=== PATIENT | male | born 1960 | race Caucasian/White ===

== ENCOUNTER → 2024-09-19 | Outpatient (CLI) | payer OTHER | LOC: CPPFTMAIN 09:18 | PROVIDERS: ATTEND Family Medicine | DX: R06.02 Shortness of breath (principal); Z87.891 Personal history of nicotine dependence | CPT/HCPCS: 94060; 94726; 94729 ==

== ENCOUNTER 2024-10-10 18:34 | Emergency (ER) | payer OTHER ==
[2024-10-10 18:40] VITALS: RESP 18
--- NOTE | 2024-10-10 18:56 | ED ---
General Adult HPI - General Chief complaint: Recheck/Abnormal Lab/Rx Stated complaint: high hemoglobin Time Seen by Provider: 10/10/24 18:46 Source: patient, RN notes reviewed Mode of arrival: ambulatory Limitations: no limitations - History of Present Illness Initial comments: Patient is a 64-year-old male presenting to the emergency department with co ncerns for high hemoglobin level. Patient states he feels fine he has no complaints. Patient states he had a lab draw done as he does every 6 months through primary care physician and he was advised to come the emergency department for high hemoglobin level. No chest pain. No dyspnea. No fatigue. - Related Data Home Medications Medication Instructions Recorded Confirmed hydroCHLOROthiazide [Hydrodiuril] 12.5 mg PO HS 10/17/15 11/22/15 lisinopriL [Zestril] 10 mg PO HS 10/17/15 11/22/15 Insulin NPH Human Isophane 20 unit SQ AC-SUPPER 11/16/15 11/22/15 [NovoLIN N] Insulin Regular, Human [NovoLIN R] 9 units SQ AC-TID 11/16/15 11/22/15 metFORMIN HCL [Glucophage] 1,000 mg PO BID 11/16/15 11/22/15 Previous Rx's Medication Instructions Recorded Ertapenem [INVanz] 1 gm IVPB Q24H #42 bag 10/11/15 Allergies Allergy/AdvReac Type Severity Reaction Status Date / Time No Known Allergies Allergy Verified 11/22/15 14:42 Review of Systems ROS Statement: Those systems with pertinent positive or pertinent negative responses have been documented in the HPI. ROS Other: All systems not noted in ROS Statement are negative. Constitutional: Denies: fever Eyes: Denies: eye pain ENT: Denies: ear pain Respiratory: Denies: cough, dyspnea Cardiovascular: Denies: chest pain Endocrine: Denies: fatigue Gastrointestinal: Denies: abdominal pain Musculoskeletal: Denies: back pain Neurological: Denies: headache, weakness Past Medical History Past Medical History: Diabetes Mellitus, Hypertension Additional Past Medical History / Comment(s): Gout, cellulitis History of Any Multi-Drug Resistant Organisms: None Reported Past Surgical History: Orthopedic Surgery Additional Past Surgical History / Comment(s): left hip, Lasik Past Anesthesia/Blood Transfusion Reactions: No Reported Reaction Past Psychological History: No Psychological Hx Reported Smoking Status: Never smoker Past Alcohol Use History: None Reported Past Drug Use History: None Reported - Past Family History Father Family Medical History: Cancer General Exam Limitations: no limitations General appearance: alert, in no apparent distress Head exam: Present: normocephalic Eye exam: Present: normal appearance Neck exam: Present: normal inspection Respiratory exam: Present: normal lung sounds bilaterally Cardiovascular Exam: Present: regular rate, normal rhythm, normal heart sounds GI/Abdominal exam: Present: soft. Absent: distended, tenderness Extremities exam: Present: normal inspection. Absent: pedal edema, calf tenderness Neurological exam: Present: alert Psychiatric exam: Present: normal affect, normal mood Skin exam: Present: normal color Course Vital Signs 10/10/24 18:36 Temperature 98.2 F Pulse Rate 100 Respiratory 18 Rate Blood Pressure 150/96 O2 Sat by Pulse 96 Oximetry Medical Decision Making - Medical Decision Making MDM back was pt. sent in by a medical professional or institution (, PA, BUILDING CLEANING SUPERVISOR, urgent care, hospital, or skilled nursing...) When possible be specific @ -Patient was sent in by primary care physician office Did you speak to anyone other than the patient for history (EMS, parent, family, police, friend...)? What history was obtained from this source @ -No Did you review nursing and triage notes (agree or disagree)? Why? @ -I reviewed and agree with nursing and triage notes Were old charts reviewed (outside hosp., previous admission, EMS record, old EKG, old radiological studies, urgent care reports/EKG's, skilled nursing records)? Report findings @ -Previous hemoglobin levels reviewed over the past several draws that have been somewhat similar however a little bit lower Differential Diagnosis (chest pain, altered mental status, abdominal pain women, abdominal pain men, vaginal bleeding, weakness, fever, dyspnea, syncope, headache, dizziness, GI bleed, back pain, seizure, CVA, palpatations, mental health, musculoskeletal)? @ -Differential Dizziness: Benign paroxysmal positional Vertigo, Meniere's disease, otitis media, acoustic neuroma, vertebrobasilar insufficiency, cerebellar stroke, encephalitis, hypovo lemic, arrhythmia, coronary artery syndrome, anemia, this is not meant to be an all-inclusive list EKG interpreted by me (3pts min.). @ -As above X-rays interpreted by me (1pt min.). @ -None done CT interpreted by me (1pt min.). @ -None done U/S interpreted by me (1pt. min.). @ -None done What testing was considered but not performed or refused? (CT, X-rays, U/S, labs)? Why? @ -None What meds were considered but not given or refused? Why? @ -None Did you discuss the management of the patient with other professionals (professionals i.e. Dr., PA, BUILDING CLEANING SUPERVISOR, lab, RT, psych nurse, social human services assistants, vice president safety, teacher, landcare officer, case finisher)? Give summary @ -No Was smoking cessation discussed for >3mins.? @ -No Was critical care preformed (if so, how long)? @ -No Were there social determinants of health that impacted care today? How? (Homelessness, low income, unemployed, alcoholism, drug addiction, transportation, low edu. Level, literacy, decrease access to med. care, senior living, rehab)? @ -No Was there de-escalation of care discussed even if they declined (Discuss DNR or withdrawal of care, Hospice)? DNR status @ -No What co-morbidities impacted this encounter? (DM, HTN, Smoking, COPD, CAD, Cancer, CVA, ARF, Chemo, Hep., AIDS, mental health diagnosis, sleep apnea, morbid obesity)? @ -None Was patient admitted / discharged? Hospital course, mention meds given and route, prescriptions, significant lab abnormalities, going to OR and other pertinent info. @ -Patient presents with concern for elevated hemoglobin level. Hemoglobin is mildly elevated and patient is symptom-free. Patient will be discharged with recommended replete draws and hematology follow-up. Patient updated. Undiagnosed new problem with uncertain prognosis? @ -No Drug Therapy requiring intensive monitoring for toxicity (Heparin, Nitro, Insulin, Cardizem)? @ -No Were any procedures done? @ -No Diagnosis/symptom? @ -Polycythemia Acute, or Chronic, or Acute on Chronic? @ -Acute Uncomplicated (without systemic symptoms) or Complicated (systemic symptoms)? @ -Default Side effects of treatment? @ -No Exacerbation, Progression, or Severe Exacerbation? @ -No Poses a threat to life or bodily function? How? (Chest pain, [place], [place], pneumonia, PE, COPD, DKA, ARF, appy, cholecystitis, CVA, Diverticulitis, Homicidal, Suicidal, threat to staff... and all critical care pts) @ -Threat to hematological function - Lab Data Result diagrams: 10/10/24 19:25 10/10/24 19:25 Lab Results 10/10/24 10/10/24 10/10/24 Range/Units 19:25 19:25 19:25 WBC 8.6 (3.8-10.6) k/uL RBC 6.11 H (4.30-5.90) m/uL Hgb 17.9 H (13.0-17.5) gm/dL Hct 54.8 H (39.0-53.0) % MCV 89.7 (80.0-100.0) fL MCH 29.3 (25.0-35.0) pg MCHC 32.7 (31.0-37.0) g/dL RDW 13.8 (11.5-15.5) % Plt Count 218 (150-450) k/uL MPV 8.3 Neutrophils % 56 % Lymphocytes % 32 % Monocytes % 6 % Eosinophils % 3 % Basophils % 1 % Neutrophils # 4.8 (1.3-7.7) k/uL Lymphocytes # 2.8 (1.0-4.8) k/uL Monocytes # 0.5 (0-1.0) k/uL Eosinophils # 0.2 (0-0.7) k/uL Basophils # 0.1 (0-0.2) k/uL PT 10.7 (10.0-12.5) sec INR 1.0 (<1.2) APTT 24.3 (22.0-30.0) sec Sodium 137 (137-145) mmol/L Potassium 4.7 (3.5-5.1) mmol/L Chloride 105 (98-107) mmol/L Carbon Dioxide 23 (22-30) mmol/L Anion Gap 9 mmol/L BUN 25 H (9-20) mg/dL Creatinine 1.09 (0.66-1.25) mg/dL Est GFR (CKD-EPI)AfAm 83 (>60 ml/min/1.73 sqM) Est GFR (CKD-EPI)NonAf 71 (>60 ml/min/1.73 sqM) Glucose 238 H (74-99) mg/dL Calcium 9.8 (8.4-10.2) mg/dL Total Bilirubin 0.7 (0.2-1.3) mg/dL AST 29 (17-59) U/L ALT 29 (4-49) U/L Alkaline Phosphatase 92 (38-126) U/L Total Protein 7.9 (6.3-8.2) g/dL Albumin 4.5 (3.5-5.0) g/dL Disposition Clinical Impression: Polycythemia Disposition: HOME SELF-CARE Condition: Stable Additional Instructions: Please do follow-up with your primary care physician in the next couple of days for recheck. Have your primary care physician recheck CBC within the next week. Also follow-up hematology, number provided. Return for chest pain or difficulty in breathing, fatigue, discoloration or burning of your hands, headache, visual changes, worsening symptoms or any other concerns Is patient prescribed a controlled substance at d/c from ED?: No Referrals: [facility],Clinic [Primary Care Provider] - 1-2 days Austin Santos [STAFF PHYSICIAN] - 1-2 days Time of Disposition: 20:19
[2024-10-10 19:38] LABS: Basophils # (A) 0.1 k/uL (0-0.2); Basophils % (A) 1 %; Eosinophils # (A) 0.2 k/uL (0-0.7); Eosinophils % (A) 3 %; HCT 54.8 % (39.0-53.0); HGB 17.9 gm/dL (13.0-17.5); Lymphocytes # (A) 2.8 k/uL (1.0-4.8); Lymphocytes % (A) 32 %; MCH 29.3 pg (25.0-35.0); MCHC 32.7 g/dL (31.0-37.0); MCV 89.7 fL (80.0-100.0); Mean Platelet Volume 8.3; Monocytes # (A) 0.5 k/uL (0-1.0); Monocytes % (A) 6 %; Neutrophils # (A) 4.8 k/uL (1.3-7.7); Neutrophils % (A) 56 %; Platelet Count 218 k/uL (150-450); RBC 6.11 m/uL (4.30-5.90); RDW 13.8 % (11.5-15.5); WBC 8.6 k/uL (3.8-10.6)
[2024-10-10 19:48] LABS: ALT 29 U/L (4-49); African American GFR (CKD) 83 (>60 ml/min/1.73 sqM); Albumin 4.5 g/dL (3.5-5.0); Anion Gap 9 mmol/L; Blood Urea Nitrogen 25 mg/dL (9-20); Calcium 9.8 mg/dL (8.4-10.2); Carbon Dioxide 23 mmol/L (22-30); Chloride 105 mmol/L (98-107); Glucose 238 mg/dL (74-99); Non-African American GFR(CKD) 71 (>60 ml/min/1.73 sqM); Partial Thromboplastin Time 24.3 sec (22.0-30.0); Prothrombin Time 10.7 sec (10.0-12.5); Sodium 137 mmol/L (137-145); Total Bilirubin 0.7 mg/dL (0.2-1.3); Total Protein 7.9 g/dL (6.3-8.2)
[2024-10-10 19:55] LABS: AST 29 U/L (17-59); Potassium 4.7 mmol/L (3.5-5.1)
[2024-10-10 19:56] LABS: Alkaline Phosphatase 92 U/L (38-126)
[2024-10-10 20:34] VITALS: BP 145/85; PULSE 74; TEMP 98.3
== END 2024-10-10 20:33 | disposition home or self-care (01) ==
LOC: EC 18:34
DX: D75.1 Secondary polycythemia (principal)
CPT/HCPCS: 36415; 80053; 85025; 85610; 85730; 99284

== ENCOUNTER 2025-01-15 19:35 | Outpatient (CLI) | payer OTHER ==
--- NOTE | 2025-01-17 15:42 | P.PCN ---
Description of Procedure: POLYSOMNOGRAPHY REPORT PROCEDURE(S)/DATE(S): Polysomnography 01/15/2025 CLINICAL: Patient has been seen in the sleep center for evaluation of obstructive sleep apnea-hypopnea syndrome. Please see my consultation. Sleep study has been done for evaluation of patient breathing during the sleep. PROCEDURE: The standard montage for clinical polysomnography included the electroencephalogram, the electrooculogram, the mentalis surface electromyography and Lead II cardiography. The respiratory battery consisted of measurements of nasal/buccal air flow, pressure transducer measurements from nose, thoracic and/or abdominal effort and intercostal surface electromyography. Video monitoring has been done to check for any parasomnia events. Nocturnal oxyhemoglobin saturations were obtained by finger oximetry. Step-damon titration with positive airway pressure was utilized to control the respiratory events, if necessary. RESULTS: During the diagnostic sleep study sleep efficiency was normal 90.6%. Latency to sleep onset was normal at 15.0 min. Sleep architecture showed stage NI 3 millihigh 66.5%, Delta sleep was absent 0%, REM sleep was slightly short 16.3%. Respiratory channel showed 1 obstructive apneas, 0 mixed apneas, 0 central apneas, 538 hypopneas with lowest oxygen level 49%. Total apnea hypopnea index was 81.5. Heart rate was in the range between 79 and 90, average 85. EMG showed 0 periodic limb movements per hour with 0 micro-arousals per hour. IMPRESSIONS: 1. Extremely severe obstructive sleep apnea hypopnea syndrome. 2. No significant periodic limb movements have been documented. Please see other impressions from consultation PLAN: 1. The patient will have PAP titration for correction of respiratory abnormalities during the sleep. 2. Losing weight program. 3. Sleep hygiene with regular time in bed for at least 7-1/2 hours. 4. No driving if feeling sleepiness. Thank you very much for allowing me to participate in the management of your patient. Sincerely, Rodriguez Alexander MD, PhD, FAASM. Diplomat of [place] [employer], Sleep Medicine Board by [place] [employer] [facility]ologic Aide of [facility] [place] cc: [facility]
== END 2025-01-16 06:00 | disposition home or self-care (01) ==
LOC: 3 N SLEEP 19:35
PROVIDERS: ATTEND Internal Medicine
DX: G47.33 Obstructive sleep apnea (adult) (pediatric) (principal); Z87.891 Personal history of nicotine dependence
CPT/HCPCS: 95810

== ENCOUNTER 2025-01-17 19:30 | Outpatient (CLI) | payer OTHER ==
--- NOTE | 2025-01-18 11:17 | P.PCN ---
Description of Procedure: CLINICAL: Titration with positive air pressure has been done for correction of respiratory abnormalities during sleep. DESCRIPTION OF PROCEDURE: The standard montage for clinical polysomnography included the electroencephalogram, the electrocardiogram, the mentalis surface electromyography and Lead II cardiography. The respiratory battery consisted of measurements of nasal /buccal air flow, pressure transducer measurements from the nose, thoracic and /or abdominal effort and intercostal surface electromyography. Video monitoring has been done to check for any parasomnia events. Nocturnal oxyhemoglobin saturations were obtained by finger oximetry. Step-damon titration with positive airway pressure was utilized to control respiratory events. Raw data of sleep recording has been reviewed and is adequate. RESULTS: Sleep efficiency was significantly decreased to 64.4%. Latency to sleep onset was normal 23.0 minutes.]. Sleep architecture showed stage N1 was short 1.1%, Delta sleep was absent 0%, REM sleep was significantly increased to 51.3%. Heart rate was minimum 71 BPM, maximum 81 BPM, average 76 BPM. EMG showed 0 periodic limb movements per hour. PAP titration have been done with CPAP up to the pressure 16 cm H2O. The best results were at the pressure 16 cm H2O. Apnea hypopnea index reduced to 0. IMPRESSION: 1. Extremely severe obstructive sleep apnea hypopnea syndrome on controle with PAP treatment. 2. No significant periodic limb movements have been documented. Please see other impressions from consultation. PLAN: 1. The patient will have treatment with positive air pressure equipment with the level of pressure AutoPap 7-17 cm H2O and should use it every night for the whole night. 2. Watching and losing weight. 3. Sleep hygiene with regular time in bed for at least 8 hours. 4. No driving if feeling any sleepiness. 5. I will see the patient for follow up visit to explain the results of the test, recommendations, check compliance with treatment and make any necessary adjustment related to mask fitting, pressure and humidification. Thank you very much for allowing me to participate in the management of your patient. Sincerely, Rodriguez Alexander MD, PhD, FAASM Diplomat of [place] [employer] Sleep Medicine Board of [place] Board of Internal Medicine [employer] Tr[employer] [facility] [place] cc: [facility]
== END 2025-01-18 05:45 | disposition home or self-care (01) ==
LOC: 3 N SLEEP 19:30
PROVIDERS: ATTEND Internal Medicine
DX: G47.33 Obstructive sleep apnea (adult) (pediatric) (principal); Z99.89 Dependence on other enabling machines and devices; Z87.891 Personal history of nicotine dependence
CPT/HCPCS: 95811

== ENCOUNTER → 2025-05-08 | Day surgery (SDC) | payer OTHER ==
[2025-05-04 16:34] VITALS: BMI 47.5
[2025-05-08 06:43] VITALS: BP 166/115; PULSE 94; RESP 18; TEMP 97.7
[2025-05-08 06:47] LABS: Glucose,Whole Blood 201 mg/dL (70-110)
== END ==
LOC: CATHCVL 06:24
PROVIDERS: ATTEND Internal Medicine Infectious Disease
DX: M86.8X7 Other osteomyelitis, ankle and foot (principal)
CPT/HCPCS: 36573; C1751

== ENCOUNTER 2025-05-29 13:33 | Emergency (ER) | payer OTHER ==
[2025-05-29 13:38] VITALS: RESP 18; TEMP 98
--- NOTE | 2025-05-29 14:07 | ED ---
Recheck HPI - General Chief Complaint: Recheck/Abnormal Lab/Rx Stated Complaint: Misplaced pick line Time Seen by Provider: 05/29/25 13:43 Source: patient, RN notes reviewed Mode of arrival: ambulatory Limitations: no limitations - History of Present Illness Initial Comments: 64-year-old male with history of diabetes presenting to emergency department wi concerns for possible PICC line malplacement of the left arm. Patient is currently receiving daily IV antibiotics through his PICC line for a infection of his left great toe. He follows with Dr. Hoff from infectious disease. He states that he has been receiving the infusions over the past 3 weeks. He believes that the PICC line may have been dislodged by about 3 inches. When the visiting nurse came today to draw back blood she was unable to and they recommended that he report to the emergency department for further evaluation. Patient denies fevers, chills, nausea, vomiting, chest pain or difficulty breathing. - Related Data Home Medications Medication Instructions Recorded Confirmed lisinopriL [Zestril] 20 mg PO QAM 10/17/15 05/08/25 Atorvastatin Calcium 10 mg PO QAM 12/14/24 05/08/25 Insulin Aspart [NovoLOG] 10 units SQ ACHS 12/14/24 05/08/25 Insulin Glargine,Hum.rec.anlog 30 units INJ QAM 12/14/24 05/08/25 [Lantus Solostar Pen] Naproxen Sodium [Aleve] 220 mg PO DIRECTED PRN 12/14/24 05/08/25 Allergies Allergy/AdvReac Type Severity Reaction Status Date / Time No Known Allergies Allergy Verified 05/29/25 13:38 Review of Systems ROS Statement: Those systems with pertinent positive or pertinent negative responses have been documented in the HPI. ROS Other: All systems not noted in ROS Statement are negative. Past Medical History Past Medical History: Diabetes Mellitus, Hyperlipidemia, Hypertension, Sleep Apnea/CPAP/BIPAP Additional Past Medical History / Comment(s): Gout, cellulitis,"I have an infection in the bone."-lt great toe.-drsg. "Severe sleep apnea"-uses [facility] History of Any Multi-Drug Resistant Organisms: None Reported Past Surgical History: Orthopedic Surgery Additional Past Surgical History / Comment(s): left hip X 2 (late and early 1999), Lasik Past Anesthesia/Blood Transfusion Reactions: No Reported Reaction Past Psychological History: No Psychological Hx Reported Smoking Status: Never smoker Past Alcohol Use History: None Reported Past Drug Use History: None Reported - Past Family History Mother Family Medical History: Hypertension Father Family Medical History: Cancer, Hypertension Additional Family Medical History / Comment(s): Melanoma - spread - prostate, General Exam Limitations: no limitations Respiratory exam: Present: normal lung sounds bilaterally. Absent: respiratory distress, wheezes, rales, rhonchi, stridor Cardiovascular Exam: Present: regular rate, normal rhythm, normal heart sounds. Absent: systolic murmur, diastolic murmur, rubs, gallop, clicks GI/Abdominal exam: Present: soft, normal bowel sounds. Absent: distended, tenderness, guarding, rebound, rigid Extremities exam: Present: normal inspection, full ROM, normal capillary refill. Absent: tenderness, pedal edema, joint swelling, calf tenderness Back exam: Present: normal inspection Skin exam: Present: warm, dry, intact, normal color. Absent: rash Course Vital Signs 05/29/25 13:35 Temperature 98.0 F Pulse Rate 109 H Respiratory 18 Rate Blood Pressure 162/117 O2 Sat by Pulse 97 Oximetry Medical Decision Making - Medical Decision Making Was pt. sent in by a medical professional or institution (, PA, REAL ESTATE ACQUISITION ANALYST, urgent care, hospital, or alf...) When possible be specific @ -No Did you speak to anyone other than the patient for history (EMS, parent, family, police, friend...)? What history was obtained from this source @ -No Did you review nursing and triage notes (agree or disagree)? Why? @ -I reviewed and agree with nursing and triage notes Were old charts reviewed (outside hosp., previous admission, EMS record, old EKG, old radiological studies, urgent care reports/EKG's, alf records)? Report findings @ -No old charts were reviewed Differential Diagnosis (chest pain, altered mental status, abdominal pain women, abdominal pain men, vaginal bleeding, weakness, fever, dyspnea, syncope, headache, dizziness, GI bleed, back pain, seizure, CVA, palpatations, mental health, musculoskeletal)? @ -PICC line misplacement EKG interpreted by me (3pts min.). @ -None X-rays interpreted by me (1pt min.). @ -X-ray of the chest reveals PICC line tip indistinct possible entrance into the superior vena cava region is not identified. CT interpreted by me (1pt min.). @ -None done U/S interpreted by me (1pt. min.). @ -Ultrasound of the left upper extremity reveals negative for DVT What testing was considered but not performed or refused? (CT, X-rays, U/S, labs)? Why? @ -None What meds were considered but not given or refused? Why? @ -None Did you discuss the management of the patient with other professionals (professionals i.e. , PA, REAL ESTATE ACQUISITION ANALYST, lab, RT, psych nurse, social problems specialist, java designer, teacher, radiation safety officer, classification case manager)? Give summary @ -I spoke with infectious disease physician, Dr. Hoff. who recommend that ultrasound be ordered to rule out blood clot of the extremity and as long as he PICC line is able to be flushed and antibiotics are administered patient stable for discharge. Was smoking cessation discussed for >3mins.? @ -No Was critical care preformed (if so, how long)? @ -No Were there social determinants of health that impacted care today? How? (Homelessness, low income, unemployed, alcoholism, drug addiction, transportation, low edu. Level, literacy, decrease access to med. care, skilled nursing, r ehab)? @ -No Was there de-escalation of care discussed even if they declined (Discuss DNR or withdrawal of care, Hospice)? DNR status @ -No What co-morbidities impacted this encounter? (DM, HTN, Smoking, COPD, CAD, Cancer, CVA, ARF, Chemo, Hep., AIDS, mental health diagnosis, sleep apnea, morbid obesity)? @ -None Was patient admitted / discharged? Hospital course, mention meds given and route, prescriptions, significant lab abnormalities, going to OR and other pertinent info. @ -Discharge. 64 oh male presenting with concern for possible PICC line malfunction. X-ray imaging repeat is undetermined if PICC line is in appropriate location. Ultrasound is negative for DVT. Nurse was able to successfully flush PICC line and draw back blood. CBC and comp were sent. Patient states that he is able to administer his antibiotic at home. Patient stable for discharge. Case discussed with my attending Dr. Red. Undiagnosed new problem with uncertain prognosis? @ -No Drug Therapy requiring intensive monitoring for toxicity (Heparin, Nitro, Insulin, Cardizem)? @ -No Were any procedures done? @ -No Diagnosis/symptom? @ -Possible PICC line misplacement Acute, or Chronic, or Acute on Chronic? @ -Acute Uncomplicated (without systemic symptoms) or Complicated (systemic symptoms)? @ -Uncomplicated Side effects of treatment? @ -No Exacerbation, Progression, or Severe Exacerbation? @ -No Poses a threat to life or bodily function? How? (Chest pain, [place], [place], pneumonia, PE, COPD, DKA, ARF, appy, cholecystitis, CVA, Diverticulitis, Homicidal, Suicidal, threat to staff... and all critical care pts) @ -No Disposition Clinical Impression: Occluded PICC line Disposition: HOME SELF-CARE Condition: Good Instructions (If sedation given, give patient instructions): How to Care for Your PICC (Peripherally Inserted Central Catheter) (ED) Additional Instructions: Please return to the Emergency Department if symptoms worsen or any other concerns. Is patient prescribed a controlled substance at d/c from ED?: No Referrals: Torsten Katz DO [Primary Care Provider] - 1-2 days Time of Disposition: 18:54
--- NOTE | 2025-05-29 14:36 | XR ---
EXAMINATION TYPE: XR chest 2V DATE OF EXAM: 05/29/2025 2:25 PM COMPARISON: No comparison studies at this location. CLINICAL INDICATION: Male, 64 years old with history of PICC line placement, TECHNIQUE: XR chest 2V view(s) obtained. FINDINGS: The heart size is normal. The pulmonary vasculature is upper limits for normal. There is a mild infiltrate at the right costophrenic angle. Correlate for atelectasis or pneumonia. PICC line enters on the left extends to at least the mediastinum. The distal tip is not clearly ident ified. IMPRESSION: 1. Correlate for atelectasis at the right costophrenic angle. 2. PICC line extends to at least the mediastinum. However, the distal tip is not clearly identified. [facility], Workstation: [facility], 05/29/2025 2:34 PM
--- NOTE | 2025-05-29 15:33 | XR ---
EXAMINATION TYPE: XR chest 1V DATE OF EXAM: 05/29/2025 3:23 PM COMPARISON: 05/29/2025 earlier exam CLINICAL INDICATION: Male, 64 years old with history of left sided PICC line placement, TECHNIQUE: XR chest 1V view(s) obtained. FINDINGS: The heart size is normal. The pulmonary vasculature is normal. The lungs are clear. Despite additional attempts for visualization of PICC line, this appears to extend to the mediastinum with the distal aspect remaining indistinct. This may be terminating at the right mediastinal border on the left. However, density of the mediastinum could obscure PICC line tip. IMPRESSION: 1. No acute pulmonary process. 2. PICC line tip remains indistinct on this exam. However, there is increasing confidence is appears to be terminating within the proximal midline or at the left mediastinal border. Entrance into the grant perior vena cava region is not identified. [facility], Workstation: [facility], 05/29/2025 3:30 PM
--- NOTE | 2025-05-29 18:45 | US ---
EXAMINATION TYPE: US venous doppler duplex UE LT DATE OF EXAM: 05/29/2025 COMPARISON: NONE CLINICAL INDICATION: Male, 64 years old with history of PICC line, R/O DVT; PICC line came out. no sw elling, no hx dvt TECHNIQUE: Grayscale, color Doppler and spectral Doppler imaging of the upper extremity. SIDE PERFORMED: left arm VESSELS IMAGED: IJV Subclavian Vein Axilla Vein Brachial Vein(s) Radial Paired Veins Ulnar Paired Veins Cephalic Vein* Basilic Vein* (*superficial vessels) FINDINGS: limited due to patient body habitus and bandage site Left Arm: ? possible portion of echoes and color defect in the mid subclavian vein near picc line vs normal, difficult to visualize due to habitus and vessel location. there may also be a small portion of echoes seen within the basilic vein near picc line. color and spectral doppler still seen. No defi nite thrombus identified. Follow-up based on clinical findings and suspicion. Grayscale, color doppler, spectral doppler imaging performed of the deep veins of the upper extremiti es. IMPRESSION: 1. Left upper extremity ultrasound negative for deep venous thrombosis. 2. Technically difficult examination with catheter and the bandaging limiting visualization. [facility], Workstation: [facility], 05/29/2025 6:43 PM
[2025-05-29 19:02] LABS: Basophils # (A) 0.11 10*3/uL (0.00-0.10); Basophils % (A) 1.3 %; Eosinophils # (A) 0.24 10*3/uL (0.04-0.35); Eosinophils % (A) 2.8 %; HCT 50.6 % (39.6-50.0); HGB 17.5 g/dL (13.0-17.0); Lymphocytes # (A) 2.97 10*3/uL (0.90-5.00); Lymphocytes % (A) 34.7 %; MCH 30.2 pg (27.0-32.0); MCHC 34.6 g/dL (32.0-37.0); MCV 87.4 fL (80.0-97.0); Monocytes # (A) 0.75 10*3/uL (0.20-1.00); Monocytes % (A) 8.8 %; Neutrophils # (A) 4.46 10*3/uL (1.80-7.70); Neutrophils % (A) 52.0 %; Platelet Count 226 10*3/uL (140-440); RBC 5.79 10*6/uL (4.40-5.60); RDW 12.6 % (11.5-14.5); WBC 8.56 10*3/uL (4.50-10.00)
[2025-05-29 19:03] VITALS: BP 149/98; PULSE 101
[2025-05-29 19:16] LABS: ALT 49 U/L (4-49); AST 43 U/L (17-59); African American GFR (CKD) >90 (>60 ml/min/1.73 sqM); Albumin 4.4 g/dL (3.5-5.0); Alkaline Phosphatase 117 U/L (38-126); Anion Gap 11 mmol/L; Blood Urea Nitrogen 20 mg/dL (9-20); Calcium 11.0 mg/dL (8.4-10.2); Carbon Dioxide 27 mmol/L (22-30); Chloride 97 mmol/L (98-107); Glucose 151 mg/dL (74-99); Non-African American GFR(CKD) 80 (>60 ml/min/1.73 sqM); Potassium 5.4 mmol/L (3.5-5.1); Sodium 135 mmol/L (137-145); Total Protein 8.1 g/dL (6.3-8.2)
== END 2025-05-29 19:04 | disposition home or self-care (01) ==
LOC: EC 13:33
DX: T82.868A Thrombosis due to vascular prosthetic devices, implants and grafts, initial encounter (principal)
CPT/HCPCS: 36415; 71045; 71046; 80053; 85025; 99284